=== PATIENT | male | born 1995 | race Caucasian/White ===

== ENCOUNTER 2017-12-01 18:37 | Emergency (ER) | payer SELFPAY ==
[~2017-12-01] VITALS: Ht 180.3 cm; Wt 68.2 kg
[2017-12-01 18:42] VITALS: BP 121/68; PULSE 106; TEMP 98.4
== END 2017-12-01 19:54 | disposition home or self-care (01) ==
LOC: COL.ER 18:37
DX: S30.0XXA Contusion of lower back and pelvis, initial encounter (principal); V80.018A Animal-rider injured by fall from or being thrown from other animal in noncollision accident, initial encounter

== ENCOUNTER 2018-09-30 22:15 | Emergency (ER) | payer SELFPAY ==
[~2018-09-30] VITALS: Ht 180.3 cm; Wt 73.9 kg
[2018-09-30 22:35] VITALS: BP 129/61; TEMP 98.7
[2018-10-01 04:41] VITALS: PULSE 74
== END 2018-10-01 04:41 | disposition home or self-care (01) ==
LOC: COL.ER 22:15
DX: S61.210A Laceration without foreign body of right index finger without damage to nail, initial encounter (principal); W23.0XXA Caught, crushed, jammed, or pinched between moving objects, initial encounter; Y92.009 Unspecified place in unspecified non-institutional (private) residence as the place of occurrence of the external cause

== ENCOUNTER 2019-02-21 19:34 | Emergency (ER) | payer SELFPAY ==
[~2019-02-21] VITALS: Ht 180.3 cm; Wt 72.7 kg
[2019-02-21 19:42] VITALS: BP 126/59; TEMP 99.4
[2019-02-21 21:02] VITALS: PULSE 71
== END 2019-02-21 21:02 | disposition home or self-care (01) ==
LOC: COL.ER 19:34
DX: S61.412A Laceration without foreign body of left hand, initial encounter (principal); F17.220 Nicotine dependence, chewing tobacco, uncomplicated; W26.0XXA Contact with knife, initial encounter; Y92.009 Unspecified place in unspecified non-institutional (private) residence as the place of occurrence of the external cause